=== PATIENT | female | born 1945 | race Native Hawaiian/Other Pacific Islander ===

== ENCOUNTER 2017-05-24 10:14 | Outpatient (CLI) | payer OTHER | END 2017-05-24 20:24 | disposition home or self-care (01) | LOC: MAMMO 10:14 | DX: Z12.31 Encounter for screening mammogram for malignant neoplasm of breast (principal) ==

== ENCOUNTER 2019-05-11 10:17 | Outpatient (CLI) | payer OTHER | END 2019-05-11 23:04 | disposition home or self-care (01) | LOC: MAMMO 10:17 | DX: Z12.31 Encounter for screening mammogram for malignant neoplasm of breast (principal) ==

== ENCOUNTER 2019-05-12 13:34 | Emergency (ER) | payer OTHER ==
[~2019-05-12] VITALS: Ht 165.1 cm; Wt 61.2 kg
[2019-05-12 15:03] LABS: PLATELET COUNT 176 K/uL (152-353)
[2019-05-12 15:10] LABS: POTASSIUM 4.4 mmol/L (3.6-5.2)
[2019-05-12 15:19] LABS: PARTIAL THROMBOPLASTIN TIME 26.1 SECONDS (24.5-33.6)
[2019-05-12 16:05] VITALS: BP 147/72; TEMP 98.1
== END 2019-05-12 16:05 | disposition home or self-care (01) ==
LOC: ED 13:34
PROVIDERS: Family Medicine
DX: H53.2 Diplopia (principal); R51 Headache; R55 Syncope and collapse; K59.09 Other constipation
CPT/HCPCS: 80053; 81000; 85027; 85610; 85730; 99283

== ENCOUNTER 2019-05-18 10:49 | Outpatient (CLI) | payer OTHER | END 2019-05-18 22:41 | disposition home or self-care (01) | LOC: MAMMO 10:49 | DX: R92.2 Inconclusive mammogram (principal) ==